=== PATIENT | female | born 1990 | race Asian ===

== ENCOUNTER 2024-10-25 15:58 | Emergency (ER) | payer OTHER ==
[~2024-10-25] VITALS: Ht 160 cm; Wt 68.1 kg
[2024-10-25 19:16] VITALS: BP 109/75; TEMP 97.9; O2SAT 98
== END 2024-10-25 19:17 | disposition home or self-care (01) ==
LOC: M ED 15:58
DX: T63.441A Toxic effect of venom of bees, accidental (unintentional), initial encounter (principal)